=== PATIENT | male | born 1965 | race Caucasian/White ===

== ENCOUNTER 2023-08-11 17:35 | Emergency (ER) | payer BC, SELFPAY ==
[2023-08-11 18:05] VITALS: BP 117/74; PULSE 102; RESP 18; TEMP 36.7; O2SAT 96; BMI 35.2
--- NOTE | 2023-08-11 18:55 | ED_ITS ---
HPI - Wound/Laceration General: Chief Complaint: Wound/Laceration Stated Complaint: left hand severe laceration Time Seen by Provider: 08/11/23 18:30 Source: patient Mode of arrival: ambulatory Limitations: no limitations History of Present Illness: Patient is a 57-year-old male who presents to ED today with complaints of lacerations to the dorsum of his left hand that he sustained just prior to arri jesus manuel after he was using a chain saw to cut wood. Last tetanus is unknown. Onset (ago): hour(s) Extremity Location: Left: hand Place: home Patient tetanus UTD: No Context: accidental Associated symptoms: Reports no associated symptoms Treatments prior to arrival: bandage Review of Systems Musc: Reports: extremity pain (L hand); Denies: extremity swelling, joint pain, joint swelling or limited range of motion Skin/Breast: Reports: other (laceration L hand) Neuro: Denies: numbness in extremities or sensory changes Physical Exam Const: COMMON NORMALS: no acute distress, patient oriented x3, no limitations and alert Extremity: COMMON NORMALS: full ROM, capillary refill normal, no clubbing, cyanosis or edema and no pedal edema GENERAL: Yes normal exam except as noted LEFT UPPER EXTREMITY: Yes hand & digits (two lacerations dorsum of L hand- superficial; no tendon involvement) Left hand and digits: Yes ROM (normal), Yes neurovascular exam (normal) and Yes tendon exam (normal tendon assessment ) Neuro: COMMON NORMALS: patient oriented x3 SENSORIUM/ORIENTATION: Yes alert Procedures Laceration Laceration 1: Site: hand Size (cm): 2.5 Description: linear Depth: simple, single layer Local Anesthetic: lidocaine 1% Amount of anesthesia used (mL): 2.0 Pre-repair: wound explored and irrigated extensively Skin layer closed with: nylon Size (cm): 4-0 Number of sutures: 4 Technique: simple, interrupted Laceration 2: Site: hand Side (If applicable): left Size (cm): 1.25 Description: linear Depth: simple, single layer Local Anesthetic: lidocaine 2% Amount of anesthesia used (mL): 1.0 Pre-repair: wound explored and irrigated extensively Skin layer closed with: nylon Size (cm): 4-0 Number of sutures: 2 Technique: simple, interrupted Course Vital Signs: Vital signs: Vital Signs Temperature 98.1 F 08/11/23 18:05 Pulse Rate 102 H 08/11/23 18:05 Respiratory Rate 18 08/11/23 18:05 Blood Pressure 117/74 08/11/23 18:05 Pulse Oximetry 96 08/11/23 18:05 Oxygen Delivery Me thod Room Air 08/11/23 18:05 MDM - Wound/Laceration Medical Decision Making XR negative. Wound was copiously irrigated and repaired as documented. Tetanus was updated. Wound care/infection precautions discussed. Lab Data Radiology Impressions Hand X-Ray 08/11/23 18:59 IMPRESSION: No acute fracture. All radiology interpretation(s) finalized by discharge Discharge Plan Discharge Patient Disposition: Home Clinical Impression: Laceration of left hand Qualifiers: Encounter type: initial encounter Foreign body presence: without foreign body Qualified Code(s): S61.412A - Laceration without foreign body of left hand, initial encounter Condition: Stable Prescriptions: No Action diclofenac sodium 50 mg tablet,delayed release (DR/EC) PO amlodipine 2.5 mg tablet PO lisinopril 20 mg tablet PO meloxicam 7.5 mg tablet 7.5 mg PO DAILY cyclobenzaprine 7.5 mg tablet 7.5 mg PO TID PRN (Reason: muscle spasm) Qty: 10 0RF prednisone 20 mg tablet 40 mg PO DAILY 5 Days Qty: 10 0RF Discharge Orders: Discharge ED (Routine); Ordered 08/11/23 Ordered By: Tracy Mullins Patient Instructions: Care For Your Stitches (DC), Laceration (DC) Activity Restrictions/Additional Instructions: Keep wound/laceration clean with warm soap and water twice daily. Monitor for signs of infection such as redness, swelling, increased pain, or drainage. Please seek medical re-evaluation if these occur. If you received sutures today these will need to be removed (unless you were told by the provider that they are absorbable). The provider should have discussed with you the length of time until removal-7 DAYS. You may return to the emergency department for this service. If your wound was closed with Steri-Strips or glue/adhesive these will fall off within the next week or so. Coding Level of Care Code ED [employer] for [employer] Dickson
--- NOTE | 2023-08-11 18:59 | XRR_ITS ---
PROCEDURE INFORMATION: Exam: XR Left Hand Exam date and time: 08/11/2023 7:01 PM Age: 57 years old Clinical indication: Injury or trauma; Other: Laceration to top of hand; Left; Additional info: Lacerations TECHNIQUE: Imaging protocol: Radiologic exam of the left hand. Views: 3 or more views. COMPARISON: No relevant prior studies available. FINDINGS: Bones/joints: Moderate to severe joint space narrowing at the scaphoid trapezium trapezoid joint. Soft tissues: Normal. XR/XR hand LT min 3V* [id number] IMPRESSION: No acute fracture.
[2023-08-11] MEDS: tetanus-dipt-pertussis 0.5 mL SDV IM (19:12)
== END 2023-08-11 19:50 | disposition home or self-care (01) ==
PROVIDERS: Emergency Provider Physician Assistant
DX: S61.412A Laceration without foreign body of left hand, initial encounter (principal); W29.3XXA Contact with powered garden and outdoor hand tools and machinery, initial encounter; Z23 Encounter for immunization
CPT/HCPCS: 12002; 73130; 90471; 90715; 99283

== ENCOUNTER → 2024-11-22 08:15 | Outpatient (BNVA) | payer BC, SELFPAY | PROVIDERS: PCP Family Medicine; Visit Provider Family Medicine | DX: E55.9 Vitamin D deficiency, unspecified; J30.9 Allergic rhinitis, unspecified; H60.90 Unspecified otitis externa, unspecified ear; Z12.5 Encounter for screening for malignant neoplasm of prostate; I10 Essential (primary) hypertension; Z13.220 Encounter for screening for lipoid disorders | CPT/HCPCS: 80053; 80061; 82306; 84443; 85025; G0103 ==